=== PATIENT | female | born 1990 | race Caucasian/White ===

== ENCOUNTER 2016-06-28 12:36 | Emergency (ER) | END 2016-06-28 19:35 | disposition home or self-care (01) | CPT/HCPCS: 36415; 80053; 81003; 81025; 83690; 96361; 96374; 96375; 99284; A9270 ==

== ENCOUNTER 2016-07-12 18:14 | Emergency (ER) | payer OTHER ==
[2016-07-12] MEDS ORDERED: SODIUM CHLORIDE 0.9% 1,000 ML IV ONE ×2 (18:38→18:49)
[2016-07-12] MEDS ORDERED: ONDANSETRON 4 MG/2 ML VIAL IVP STA (18:38)
[2016-07-12] MEDS ORDERED: METOCLOPRAMIDE 10 MG/2 ML VIAL IVP STA (18:38)
[2016-07-12] MEDS ORDERED: LACTATED RINGERS 1,000 ML IV STA (18:38)
[2016-07-12] MEDS ORDERED: LACTATED RINGERS 1,000 ML IV ONE (18:49)
[2016-07-12] MEDS ORDERED: ONDANSETRON 4 MG/2 ML VIAL ONE (18:49)
[2016-07-12] MEDS ORDERED: METOCLOPRAMIDE 10 MG/2 ML VIAL IVP ONE (18:49)
== END 2016-07-12 20:44 | disposition home or self-care (01) ==
DX: O21.1 Hyperemesis gravidarum with metabolic disturbance (principal); E86.0 Dehydration; O99.611 Diseases of the digestive system complicating pregnancy, first trimester; R19.7 Diarrhea, unspecified; Z3A.12 12 weeks gestation of pregnancy
CPT/HCPCS: 36415; 80053; 83690; 96361; 96374; 96375; 99283; 99284; J7120

== ENCOUNTER 2016-07-17 11:37 | Emergency (ER) | payer OTHER ==
[2016-07-17] MEDS ORDERED: PROMETHAZINE INJ 25 MG in SODIUM CHLORIDE 0.9% 50 ML IV STA (12:26)
[2016-07-17] MEDS ORDERED: LACTATED RINGERS 1,000 ML IV STA (12:26)
[2016-07-17] MEDS ORDERED: PROMETHAZINE 25 MG/1 ML VIAL ONE (12:31)
[2016-07-17] MEDS ORDERED: ONDANSETRON 4 MG/2 ML VIAL IVP STA (13:30)
[2016-07-17] MEDS ORDERED: DEXTROSE 5%-0.9% NACL 1,000 ML IV ONE (13:32)
[2016-07-17] MEDS ORDERED: ONDANSETRON 4 MG/2 ML VIAL ONE (13:37)
== END 2016-07-17 14:51 | disposition home or self-care (01) ==
DX: O21.0 Mild hyperemesis gravidarum (principal); Z3A.12 12 weeks gestation of pregnancy